=== PATIENT | male | born 1985 | race African-American/Black ===

== ENCOUNTER 2018-07-30 15:37 | Emergency (ER) | payer MEDICAID, OTHER, SELFPAY ==
[~2018-07-30] VITALS: Ht 182.9 cm; Wt 130.8 kg
[2018-07-30 15:40] VITALS: BP 154/101
[2018-07-30] MEDS ORDERED: LOSA25TA25 PO (16:00)
[2018-07-30] MEDS ORDERED: MAALOX/HYOSCYAMINE/LIDOCAINE 45 ML BTL PO ONE (16:00)
[2018-07-30] MEDS ORDERED: MAALOX/HYOSCYAMINE/LIDOCAINE 45 ML BTL ONE (16:14)
[2018-07-30 16:15] LABS: BASOPHILS # (AUTO) 0.01 x10^3/uL (0-0.1); BASOPHILS % (AUTO) 0 % (0-1); EOSINOPHILS # (AUTO) 0.22 x10^3/uL (0-0.4); EOSINOPHILS % (AUTO) 2 % (1-7); LYMPHOCYTES # (AUTO) 1.87 x10^3/uL (1-3.4); LYMPHOCYTES % (AUTO) 19 % (22-44); MD NO; MEAN CORPUSCULAR HEMOGLOBIN 27.2 pg (27.5-34.5); MEAN CORPUSCULAR HGB CONC 33.1 g/dL (33.2-36.2); MEAN CORPUSCULAR VOLUME 82.1 fL (81-97); MEAN PLATELET VOLUME 8.3 fL (7.4-10.4); MONOCYTES # (AUTO) 0.32 x10^3/uL (0.2-0.8); MONOCYTES % (AUTO) 3 % (2-9); NEUTROPHILS % (AUTO) 76 % (42-75); PLATELET COUNT 344 x10^3/uL (130-400); RED BLOOD COUNT 6.04 x10^6/uL (4.38-5.82); RED CELL DISTRIBUTION WIDTH 14.8 % (9.4-14.8)
[2018-07-30 16:27] LABS: ALANINE AMINOTRANSFERASE 35 U/L (12-78); ALBUMIN 3.7 g/dL (3.4-5.0); ANION GAP 9 mmol/L (5-15); CALCIUM 9.4 mg/dL (8.5-10.1); CHLORIDE 107 mmol/L (98-107); CREATININE 0.89 mg/dL (0.7-1.3)
[2018-07-30 16:30] LABS: ALKALINE PHOSPHATASE 92 U/L (45-117); BILIRUBIN,TOTAL 0.3 mg/dL (0.2-1.0); TOTAL PROTEIN 8.1 g/dL (6.4-8.2)
[2018-07-30 17:10] LABS: MICROSCOPIC NOT IND
[2018-07-30 17:12] LABS: CULTURE INDICATED? NO
[2018-07-30] MEDS ORDERED: KETOROLAC 30 MG/1 ML ONE (17:23)
[2018-07-30] MEDS ORDERED: KETOROLAC 30 MG/1 ML IM ONE (17:30)
== END 2018-07-30 18:22 | disposition home or self-care (01) ==
LOC: ED 17:54
DX: K29.00 Acute gastritis without bleeding (principal)
CPT/HCPCS: 36415; 74021; 80053; 81003; 83690; 85025; 96372; 99284; J1885